=== PATIENT | female | born 1995 | race African-American/Black ===

== ENCOUNTER 2018-08-30 07:08 | Emergency (ER) | payer SELFPAY ==
[~2018-08-30] VITALS: Ht 152.4 cm; Wt 104.5 kg
[2018-08-30 07:12] VITALS: Ht 152.4 cm; Wt 104.5 kg
[2018-08-30] MEDS ORDERED: OMEPRAZOLE20 M1 PO (07:27)
[2018-08-30 07:41] VITALS: BP 126/82
== END 2018-08-30 07:42 | disposition home or self-care (01) ==
LOC: D.ER 07:08
DX: K21.9 Gastro-esophageal reflux disease without esophagitis (principal)

== ENCOUNTER 2018-09-04 09:42 | Emergency (ER) | payer SELFPAY ==
[~2018-09-04] VITALS: Ht 152.4 cm; Wt 104.5 kg
[~2018-09-04 09:42] MED LIST: OMEPRAZOLE20 M1 PO
[2018-09-04 09:50] VITALS: Ht 152.4 cm; Wt 104.5 kg
[2018-09-04 12:48] VITALS: BP 148/76
== END 2018-09-04 12:49 | disposition home or self-care (01) ==
LOC: D.ER 09:42
DX: J02.9 Acute pharyngitis, unspecified (principal)